=== PATIENT | male | born 1975 | race Caucasian/White ===

== ENCOUNTER 2017-03-11 21:09 | Emergency (ER) | payer OTHER ==
[~2017-03-11] VITALS: Ht 188 cm; Wt 86.6 kg
[2017-03-11 21:51] LABS: BASOPHILS # (AUTO) 0.1 10^3/uL (0.0-0.1); BASOPHILS % (AUTO) 1 % (0-10); EOSINOPHILS # (AUTO) 0.2 10^3/uL (0.0-0.3); EOSINOPHILS % (AUTO) 2 % (0-10); LYMPHOCYTES % (AUTO) 31 % (12-44); MEAN CORPUSCULAR HEMOGLOBIN 33 PG (25-34); MEAN CORPUSCULAR HGB CONC 35 G/DL (32-36); MEAN CORPUSCULAR VOLUME 96 FL (80-99); MEAN PLATELET VOLUME 11.2 FL (7.4-10.4); MONOCYTES # (AUTO) 0.7 X 10^3 (0.0-1.0); MONOCYTES % (AUTO) 8 % (0-12); NEUTROPHILS # (AUTO) 5.7 X 10^3 (1.8-7.8); NEUTROPHILS % (AUTO) 59 % (42-75); PLATELET COUNT 226 10^3/uL (130-400); RED BLOOD COUNT 4.15 10^6/uL (4.35-5.85); RED CELL DISTRIBUTION WIDTH 12.6 % (10.0-14.5); WHITE BLOOD COUNT 9.7 10^3/uL (4.3-11.0)
[2017-03-11 22:00] LABS: INR 0.9 (0.8-1.4); PROTHROMBIN TIME PATIENT 12.3 SEC (12.2-14.7)
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
[2017-03-11 22:15] LABS: ALBUMIN 4.4 GM/DL (3.2-4.5); BILIRUBIN,TOTAL 0.4 MG/DL (0.1-1.0); CALCIUM 9.5 MG/DL (8.5-10.1); CREATININE SERUM 1.4 MG/DL (0.60-1.30); TOTAL PROTEIN 7.4 GM/DL (6.4-8.2)
[2017-03-11] MEDS ORDERED: NS IV 1000 ML 1,000 ML IV ONE (22:26)
[2017-03-11] MEDS ORDERED: IOHEXOL 350 MG/ML 100 ML (OMNIPAQUE 350) VIAL IV ONE (22:30)
[2017-03-11] MEDS ORDERED: NS 100 ML (IVPB) BAG IV ONE (22:30)
[2017-03-11 23:05] LABS: BILIRUBIN,URINE NEGATIVE (NEGATIVE); KETONES,URINE NEGATIVE (NEGATIVE); LEUKOCYTE ESTERASE ,URINE 1+ (NEGATIVE); NITRITE,URINE NEGATIVE (NEGATIVE); PH,URINE 7 (5-9); PROTEIN,URINE 1+ (NEGATIVE); UROBILINOGEN,URINE NORMAL (NORMAL)
[2017-03-11 23:14] LABS: SQUAMOUS EPITHELIAL CELL,UR RARE /HPF; WBC,URINE 0-2 /HPF
[2017-03-11] MEDS ORDERED: CYCL10TA9 PO (23:27)
[2017-03-11] MEDS ORDERED: METH4TAB PO (23:27)
[2017-03-11] MEDS ORDERED: RX-CYCLOBENZAPRINE 10 MG (FLEXERIL) TAB PPK#3 PO STA (23:27)
[2017-03-11] MEDS ORDERED: KETOROLAC 30 MG/ML VIAL IVP ONE (23:30)
[2017-03-11 23:34] VITALS: BP 133/85
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
== END 2017-03-11 23:34 | disposition home or self-care (01) ==
LOC: EDUNIT# 21:09 → ER 21:11
DX: S16.1XXA Strain of muscle, fascia and tendon at neck level, initial encounter (principal); S80.02XA Contusion of left knee, initial encounter; S20.212A Contusion of left front wall of thorax, initial encounter; S39.012A Strain of muscle, fascia and tendon of lower back, initial encounter; S30.1XXA Contusion of abdominal wall, initial encounter; K80.20 Calculus of gallbladder without cholecystitis without obstruction; R91.1 Solitary pulmonary nodule; F17.210 Nicotine dependence, cigarettes, uncomplicated; Z93.3 Colostomy status; Z87.19 Personal history of other diseases of the digestive system; Z90.710 Acquired absence of both cervix and uterus; V49.40XA Driver injured in collision with unspecified motor vehicles in traffic accident, initial encounter; Y92.410 Unspecified street and highway as the place of occurrence of the external cause
CPT/HCPCS: 36415; 70450; 71010; 71260; 72125; 72128; 72131; 73562; 74177; 80053; 80306; 81000; 82150; 83690; 85025; 85610; 85730

== ENCOUNTER 2017-07-25 14:16 | Outpatient (RCR) | payer OTHER ==
[~2017-07-25 14:16] MED LIST: CYCL10TA9 PO; METH4TAB PO
== END 2017-07-25 15:23 | disposition home or self-care (01) ==
PROVIDERS: ATTEND Family Medicine
DX: M54.2 Cervicalgia (principal); V89.2XXA Person injured in unspecified motor-vehicle accident, traffic, initial encounter

== ENCOUNTER → 2018-02-08 | Outpatient (CLI) | payer OTHER ==
--- NOTE | 2018-02-08 13:50 | Diagnostic Imaging Report ---
PROCEDURE: MRI lumbar spine. TECHNIQUE: Multiplanar, multisequence MRI of the lumbar spine was performed without contrast. INDICATION: Back pain. There are no prior MRI examinations available for comparison. The CT thoracic and lumbar spine exam performed on 03/11/2017 failed to show any sign of an acute abnormality. On the T2 sagittal images of this exam the vertebral body heights and alignment are within normal limits and similar to the previous study. The axial images do show that there is degenerative disc ligamentous and bony disease at the L4-5 level. The AP diameter of thecal sac is narrowed to 10.7 mm. There is also moderate narrowing of the neural foramen bilaterally. In retrospect these findings were present on the prior study and did not appear to progress. However, there is abnormal signal involving the opposing endplates of L4 and L5 particularly on 4. This abnormal signal could be related to degenerative disease alone. There is no clear evidence for discitis or osteomyelitis. However, if there is clinical concern regarding discitis/osteomyelitis, then a followup MRI lumbar spine exam with intravenous contrast would be recommended. There is no abnormal signal arising from the cord or the vertebral bodies to indicate an acute abnormality. There is no sign of a paraspinal mass. IMPRESSION: 1. There is degenerative disc ligamentous and bony disease at the L4-5 level. There does not appear to be high-grade stenosis at this level although there is moderate narrowing of the neural foramen bilaterally. 2. The abnormal signal involving the opposing endplates of L4 and L5 may be due to degenerative disease alone. Additional considerations and recommendations as above. 3. There is no other high-grade stenosis identified. 4. There is no sign of acute bony abnormality or cord lesion. Dictated by: Dictated on workstation # [id number]
== END ==
LOC: RAD 10:26
PROVIDERS: ATTEND Family Medicine
DX: M51.36 Other intervertebral disc degeneration, lumbar region (principal); M89.9 Disorder of bone, unspecified; M99.73 Connective tissue and disc stenosis of intervertebral foramina of lumbar region; V89.2XXA Person injured in unspecified motor-vehicle accident, traffic, initial encounter
CPT/HCPCS: 72148